=== PATIENT | female | born 1960 | race Caucasian/White ===

== ENCOUNTER 2021-03-31 12:50 | Outpatient (CLI) | payer MEDICARE | END 2021-03-31 12:51 | disposition home or self-care (01) | LOC: TBSIIMAG 12:50 | PROVIDERS: ATTEND Neurological Surgery | DX: M48.062 Spinal stenosis, lumbar region with neurogenic claudication (principal); M54.50 Low back pain, unspecified; M47.816 Spondylosis without myelopathy or radiculopathy, lumbar region; M47.817 Spondylosis without myelopathy or radiculopathy, lumbosacral region | CPT/HCPCS: 72148; 72158 ==